=== PATIENT | male | born 1985 | race Caucasian/White ===

== ENCOUNTER 2017-05-07 02:51 | Emergency (ER) | payer SELFPAY ==
[~2017-05-07] VITALS: Ht 182.9 cm; Wt 148.8 kg
[~2017-05-07 02:51] MED LIST: Z.0.NO CURRENT MEDS
[2017-05-07 02:57] VITALS: BP 178/86; PULSE 84; RESP 18; TEMP 98.8; O2SAT 99
--- NOTE | 2017-05-07 03:10 | PD ---
HPI Chief Complaint: Injury Time Seen by Provider: 03:06 Travel History International Travel<30 days: No Contact w/Intl Traveler<30days: No Traveled to known affect area: No History of Present Illness HPI 31-year-old male presents to the emergency department by private transportation for evaluation of left knee injury. According the patient last evening while playing kickball he sustained a twisting type injury with a popping sensation to the medial inferior aspect of his left knee and subsequently developed pain. Patient has noted some swelling to the area and has pain on range of motion of the knee. No prior history of injury to the left knee. Patient did take ibuprofen 800 mg prior to arrival to the emergency department and did attempt to use ice packs intermittently to decrease swelling. Patient states injury occurred approximate 8 PM. Due to persistent and intolerable pain presents to the emergency department for an evaluation this time. Patient denies other injury. PFSH Social History Alcohol Use: Yes (DRINK EVERY COUPLE DAYS) Tobacco Use: No Substance Use: No Allergies-Medications (Allergen,Severity, Reaction): Coded Allergies: No Known Allergies (Verified Allergy, Mild, 05/07/17) Reported Meds & Prescriptions Reported Meds & Active Scripts Active Percocet (Oxycodone-Acetaminophen) 5-325 mg Tab 1 Tab PO Q6H PRN Ibuprofen 800 Mg Tab 800 Mg PO Q8H PRN Review of Systems Except as stated in HPI: all other systems reviewed are Neg Physical Exam Narrative GENERAL: Well-developed well-nourished male in no acute distress no respiratory distress SKIN: Warm and dry. HEAD: Normocephalic. EYES: No scleral icterus. No injection or drainage. NECK: Supple, trachea midline. No JVD or lymphadenopathy. CARDIOVASCULAR: Regular rate and rhythm without murmurs, gallops, or rubs. RESPIRATORY: Breath sounds equal bilaterally. No accessory muscle use. GASTROINTESTINAL: Abdomen soft, non-tender, nondistended. MUSCULOSKELETAL: No cyanosis, or edema. Attention left knee positive multiple effusion without obvious deformity reproducible pain with provocative testing point tenderness to medial inferior aspect of the knee. Distally neurovascular tendon intact. BACK: Nontender without obvious deformity. No CVA tenderness. Data Data Last Documented VS Vital Signs Date Time Temp Pulse Resp B/P (MAP) Pulse Ox O2 Delivery O2 Flow Rate FiO2 05/07/17 03:05 84 18 100 05/07/17 02:57 98.8 178/86 (116) Orders Orders Knee, Complete (4vws) (05/07/17 ) Crutches (05/07/17 03:31) Splint Or Brace Apply/Monitor (05/07/17 03:31) MDM Medical Decision Making Medical Screen Exam Complete: Yes Emergency Medical Condition: Yes Medical Record Reviewed: Yes Differential Diagnosis Knee injury, medial meniscus tear, internal derangement, collateral ligament injury, anterior cruciate injury, plateau fracture, subluxation, dislocation Narrative Course Imaging study ordered; patient has taken ibuprofen 800 mg times one dose and applied ice without symptomatic relief L knee xr NABI; knee immobilizer applied and crutches provided Diagnosis Primary Impression: Internal derangement of knee Qualified Codes: M23.92 - Unspecified internal derangement of left knee Referrals: Orthopedist call for appointment Primary Care Physician 2 days Patient Instructions: General Instructions Departure Forms: Tests/Procedures, Work Release Special Instructions: modified duty -- no knee bending, no climbing, no squatting, and no prolonged standing x 3 days Additional Instructions: Apply ice to affected knee intermittently for next 12-24 hours Continue ibuprofen 800 mg as often as every 8 hours as needed for pain associated with inflammation Wear knee place for joint support Use crutches to assist with ambulation May take narcotic pain medication Percocet as prescribed as needed for pain greater than 5/10 intensity; avoid prolonged use of this medication or frequent use this medication; be aware this medication may cause drowsiness, impair judgment, delay reaction time, increase risk for fall or increase risk for constipation Med/Other Pt SpecificInfo: Prescription(s) given Scripts Oxycodone-Acetaminophen (Percocet) 5-325 mg Tab 1 TAB PO Q6H Y for PAIN GREATER THAN 5, #7 TAB 0 Refills Prov: Carole Amador MD 05/07/17 Ibuprofen (Ibuprofen) 800 Mg Tab 800 MG PO Q8H Y for PAIN GREATER THAN 5, #12 TAB 0 Refills Prov: Carole Amador MD 05/07/17 Disposition: 01 DISCHARGE HOME Condition: Stable Carole Amador MD May 07, 2017 03:10
[2017-05-07] MEDS ORDERED: IBUP1TAB7 PO (03:34)
[2017-05-07] MEDS ORDERED: PERC5TAB12 PO (03:34)
[2017-05-07 03:50] VITALS: BP 166/78; PULSE 80; RESP 17; O2SAT 98
--- NOTE | 2017-05-07 03:57 | RADRPT ---
EXAM DATE/TIME: 05/07/2017 03:22 [facility] COMPARISON: No previous studies available for comparison. INDICATIONS : Left knee pain. MEDICAL HISTORY : None. SURGICAL HISTORY : None. ENCOUNTER: Initial ACUITY: 1 day PAIN SCORE: 5/10 LOCATION: Left knee. FINDINGS: Four view examination of the left knee demonstrates no evidence of fracture or dislocation. Bony min eralization is normal. The articular surfaces are intact. The suprapatellar soft tissues have a nor mal configuration. CONCLUSION: Unremarkable examination of the left knee. Bucky Amaya MD on May 07, 2017 at 3:54 Board Certified Radiologist. This report was verified electronically.
== END 2017-05-07 04:02 | disposition home or self-care (01) ==
LOC: PHED 02:51
DX: M23.92 Unspecified internal derangement of left knee (principal)
CPT/HCPCS: 73564; 99283; E0113; L1830